=== PATIENT | female | born 1950 | race Caucasian/White ===

== ENCOUNTER 2017-09-26 06:50 | Day surgery (SDC) | payer MEDICARE, OTHER ==
[2017-09-24 15:07] VITALS: BMI 32.8
[2017-09-26 08:19] VITALS: BP 151/116; TEMP 97
[2017-09-26] MEDS ORDERED: Prevnar 13-Val Conj/PF 0.5 ML SYRINGE IM ONE (09:00)
--- NOTE | 2017-09-26 10:59 | RAD ---
CERVICAL AND LUMBAR SPINE MYELOGRAM: Date: 09/26/17 INDICATION: Cervical and lumbar radiculopathy. PROCEDURE: After informed consent had been obtained, the patient was escorted to the interventional suite and pl aced on the procedural table. [employer] imaging was performed. The patient was placed into a prone posi tion. Skin on the low back was then prepped and draped in the standard sterile fashion and topical a nd regional soft tissue anesthesia was achieved with 1% lidocaine and sodium bicarbonate. L2-3 right interlaminar approach was selected, and a 22 gauge needle was uneventfully advanced into the thecal s ac with clear color CSF. Subsequently, 13 mL Isovue-M300 was instilled into the thecal sac under joanna l time fluoroscopy. Appropriate opacification of thecal sac demonstrated with imaging stored for con firmation. The needle was then removed from the patient. The patient tolerated the procedure well a nd was then transferred to CT to undergo subsequent myelogram. Reference separate report for full de tails. Fluoroscopy Data: 0.4 minutes intermittent fluoroscopy, 149 mGy*cm^2. IMPRESSION: Technically successful cervical and lumbar myelogram as detailed above. POS: [facility]
--- NOTE | 2017-09-26 11:10 | CT ---
CT CERVICAL SPINE MYELOGRAM CT CERVICAL SPINE WITH CONTRAST: Date: 09/26/17 CLINICAL HISTORY: Cervical pain, weakness, stenosis. TECHNIQUE: CT scan of cervical spine performed. Status post myelogram procedure. Reference separate procedure re port for technical details of the procedure preceding the diagnostic imaging portion of the exam. FINDINGS: There is anterior metallic fusion of C6-7 levels. Posteriorly located cerclage wires traverse the C4 through C6 posterior elements. There is Grade I spondylolisthesis with associated focal kyphosis and partial intervertebral disc spa ce fusion of the C3-4 level. There is a slight degree of cortical discontinuity at the inferior and p osterior aspect of C3 vertebral segment. The fused C7 vertebral segment demonstrates moderate central ly located height loss and there is osseous proliferation emanating from the inferior aspect of the f used C6 vertebral body. There is degenerative hypertrophy at the atlantodental articulation. There is no significant central canal stenosis of C1-2 or C2-3. Centrally located osteophyte at C2-3 minimall y effaces the thecal sac. No significant C2-3 level foraminal stenosis. C3-4: There is a broad based osteophyte with mild central canal narrowing and ventral cord effacement. No h igh grade foraminal stenosis. C4-5: Right asymmetric disc osteophyte results in mild narrowing of the central canal. No high grade forami nal stenosis. C5-6: Broad based disc osteophyte is present with mild narrowing of central canal and mild ventral cord eff acement. Osseous hypertrophy at the uncinate process regions results in minimal narrowing of each jazmyne ral foramen. C6-7: Postoperative level reveals a broad based osteophyte asymmetric to the right with mild to moderate ce ntral canal narrowing and associated ventral cord effacement. There is moderate right and mild left f oraminal stenosis. C7-T1: There is broad based disc osteophyte and trace spondylolisthesis with mild to moderate central canal stenosis and ventral cord effacement. No high grade foraminal stenosis. IMPRESSION: 1. There is moderate multilevel degenerative change at the cervical spine as outlined above. 2. Postoperative changes are present. There is no evidence of significant perihardware lucency. POS: [facility]
--- NOTE | 2017-09-27 07:31 | CT ---
CT LUMBAR SPINE WITH CONTRAST: CT LUMBAR SPINE MYELOGRAM: CLINICAL HISTORY: Pain. Weakness. Stenosis. TECHNIQUE: Please reference the myelogram procedure report for technical details regarding the procedural compon ent performed prior to the diagnostic imaging portion of the exam. The exam is performed in conjunction with the cervical spine myelogram. FINDINGS: There is contrast opacification of the thecal sac contents, as well as a mild component of contrast w ithin the epidural space of the lumbar vertebral canal. Degenerative lucencies at the L4 and L5 vert ebral segments are present, indicative of Schmorl's nodes and degenerative cyst formation. There is prominent endplate sclerosis at these levels, as well as S1, compatible with a degenerative process. No acute compression fracture. There is grade 1-2 spondylolisthesis at L4-L5. Trace retrolisthesis at L5-S1 present. L5-S1: The thecal sac is patent. There is dependently layering contrast within the patent terminal thecal sac. A mild broad-based disk osteophyte is present without high grade central canal stenosis. Lateralized osteophyte formation, along with moderate bilateral facet hypertrophy, does result in m oderate osseous compromise of each neural foramen. L4-L5: As discussed above, there is spondylolisthesis, together with disk osteophyte complex that pr oduces moderate central canal stenosis. There is moderate bilateral neural foraminal stenosis and mo derate, degenerative bilateral facet hypertrophy, right greater than left. L3-L4: Disk osteophyte complex is present with moderate narrowing of the central canal. There is mo derate biforaminal stenosis as well. L2-L3: Disk osteophyte complex present with mild narrowing of the central canal. There is mild narr owing of each neural foramen with mild to moderate bilateral facet hypertrophy. L1-L2: There is no significant compromise of the central canal. No high grade foraminal stenosis. Incidental note of colonic diverticulosis and vascular disease. IMPRESSION: Multilevel degenerative change at the lumbar spine, as outlined above. Findings are most pronounced at the L2-L3 and L4-L5 levels. POS: [facility]
== END 2017-09-26 10:20 | disposition home or self-care (01) ==
LOC: RAD 06:50 → EDSTATUS 08:00 → RAD 10:20
PROVIDERS: ATTEND Physical Medicine & Rehabilitation
PROC: B02BY0Z Computerized Tomography (CT Scan) of Spinal Cord using Other Contrast, Unenhanced and Enhanced (ICD-10-PCS; principal; 2017-09-26)
DX: M48.03 Spinal stenosis, cervicothoracic region (principal); M43.13 Spondylolisthesis, cervicothoracic region; M48.061 Spinal stenosis, lumbar region without neurogenic claudication; M43.16 Spondylolisthesis, lumbar region; F32.9 Major depressive disorder, single episode, unspecified; E78.00 Pure hypercholesterolemia, unspecified; Z88.0 Allergy status to penicillin; Z88.5 Allergy status to narcotic agent; Z98.890 Other specified postprocedural states
CPT/HCPCS: 62305; 72126; 72132

== ENCOUNTER 2019-02-25 14:48 | Outpatient (CLI) | payer MEDICARE ==
--- NOTE | 2019-02-25 16:31 | MMO ---
Bilateral MAMMO Bilat Screen [facility]. CLINICAL HISTORY: Patient is 68 years old and is seen for screening. The patient has the following family history of breast cancer: maternal aunt, at age 58. The patient has no personal history of cancer. VIEWS: The views performed were: bilateral craniocaudal with tomosynthesis and bilateral mediolateral oblique with tomosynthesis. FILMS COMPARED: The present examination has been compared to prior imaging studies performed at [facility] on 01/09/2011, 08/12/2012, 10/30/2013 and 09/06/2015. This study has been interpreted with the assistance of computer-aided detection. MAMMOGRAM FINDINGS: There are scattered fibroglandular densities. There are no suspicious masses, suspicious calcifications, or new areas of architectural distortion. IMPRESSION: THERE IS NO MAMMOGRAPHIC EVIDENCE OF MALIGNANCY. A ROUTINE FOLLOW-UP MAMMOGRAM IN 1 YEAR IS RECOMMENDED. THE RESULTS OF THIS EXAM WERE SENT TO THE PATIENT. ACR BI-RADS Category 1 - Negative MAMMOGRAPHY NOTE: 1. A negative mammogram report should not delay a biopsy if a dominant of clinically suspicious mass is present. 2. Approximately 10% to 15% of breast cancers are not detected by mammography. 3. Adenosis and dense breasts may obscure an underlying neoplasm. Reported by: ESTEBAN BO MD Electonically Signed: [id number]
== END 2019-02-25 14:49 | disposition home or self-care (01) ==
LOC: BICMAMMO 14:48
PROVIDERS: ATTEND Family Medicine
DX: Z12.31 Encounter for screening mammogram for malignant neoplasm of breast (principal); Z80.3 Family history of malignant neoplasm of breast
CPT/HCPCS: 77063; 77067

== ENCOUNTER 2019-06-01 06:10 | Outpatient (CLI) | payer MEDICARE | END 2019-06-01 06:11 | disposition home or self-care (01) | LOC: LABBT 06:10 | PROVIDERS: ATTEND Neurological Surgery | DX: Z01.810 Encounter for preprocedural cardiovascular examination (principal); T84.498A Other mechanical complication of other internal orthopedic devices, implants and grafts, initial encounter | CPT/HCPCS: 93005; 93010 ==

== ENCOUNTER 2019-06-08 06:16 | Day surgery (SDC) | payer MEDICARE ==
[2019-06-01 10:00] VITALS: BMI 33.7
[2019-06-08] MEDS ORDERED: Levofloxacin 500 mg/D5W 100 ml Premix Bag ONE (07:50)
[2019-06-08] MEDS ORDERED: Clindamycin/D5W 900 mg/50 ml Premix Bag ONE (07:50)
--- NOTE | 2019-06-08 07:59 | HP ---
HISTORY OF PRESENT ILLNESS: Ms. Peres is a pleasant 69-year-old woman, here today for followup per Dr. Augustin on her cervical spine where she had three major operations. She actually has done very well since the last one in 2011. Over the last year, however, she started to develop severe neck pain particularly in the middle of the night and upon awaking. Imaging from 2017 at [facility] does show what could be a nonunion at C6-C7 and then we repeated the CT scan at [facility] that confirms. She does occasionally get pain in the C7 fashion to the left upper extremity and this could also play a factor. PHYSICAL EXAMINATION: GENERAL: She is alert and oriented x3. No limitation in cervical range of motion. Normal 5/5 strength in the bilateral upper extremities. PAST MEDICAL HISTORY: Significant for chronic pain syndrome, hypercholesterolemia, migraines, osteoarthritis, anxiety, and seasonal allergies. CURRENT MEDICATIONS: 1. Amitriptyline. 2. Crestor. ALLERGIES: CODEINE AND PENICILLIN. ASSESSMENT: Nonunion of cervical spine. PLAN: Dr. Reyes met with the patient, reviewed imaging, and advocated for re-operation of C6-C7 ACDF. He explained to the patient the risks, benefits, and alternatives to the procedure. The patient expressed understanding and elected to move forward with surgery as discussed. I do believe the patient is mentally competent and capable of making medical decisions for herself. We will move forward with surgery as planned. Job ID: [id number]
[2019-06-08] MEDS ORDERED: Fentanyl 100 MCG/2 ML VIAL ONE (09:01)
[2019-06-08] MEDS ORDERED: PHENYLEPHRINE-NS 100 MCG/ML 10 ML SYRINGE ONE (09:53)
[2019-06-08] MEDS ORDERED: PROPOFOL 200 MG/20 ML VIAL ONE (09:53)
[2019-06-08] MEDS ORDERED: Ondansetron PF 4 MG/2 ML Vial ONE (09:53)
[2019-06-08] MEDS ORDERED: Lidocaine 1% PF 5 ML VIAL ONE (09:53)
[2019-06-08] MEDS ORDERED: Rocuronium Bromide 10 MG/ML (10ML VIAL) ONE (09:53)
[2019-06-08] MEDS ORDERED: Dexamethasone 20 MG/5 ML VIAL ONE (09:53)
[2019-06-08] MEDS ORDERED: Glycopyrrolate 0.2 MG/ML 5 ML SYRINGE ONE (09:53)
--- NOTE | 2019-06-08 11:00 | OP ---
DATE OF PROCEDURE: 06/08/2019 COMPENSATION AGENT: Grant Mejia. INDICATION: Pain. DIAGNOSES: Failed fusion, C6-C7; nonunion. PROCEDURES: Reoperation; exploration of fusion; removal of hardware; and then anterior cervical diskectomy and fusion, C6-C7. ANESTHESIA: General. DESCRIPTION OF PROCEDURE: The patient was brought into the operating room and placed under general anesthesia. She was placed on table in a supine position. A transverse incision was planned over the lateral aspect of the neck on the right. After prepping and draping and after an appropriate operative pause, the incision was created. The underlying platysma muscle was identified and incised. A blunt tissue plane anterior to the sternocleidomastoid muscle was used to gain access to the prevertebral space. The patient's prior hardware construct was identified and was removed completely. We then identified the C6-C7 disk space where the nonunion was present. We removed additional disk material and drilled away ectopic bone placed from a prior operation. After decompressing the segment, decorticating the endplates, a 6-mm lordotic PEEK cage packed with allograft and autograft material was placed within the interbody space. An anterior cervical plate was then fashioned to the front of spine and secured with a total of 4 fixed screws. Midline lateral structures were inspected and found to be free from significant trauma. The wound was irrigated. Hemostasis was maintained throughout. The wound was then closed in anatomic layers and a pressure dressing was applied. There were no known procedural complications. Job ID: [id number]
[2019-06-08] MEDS ORDERED: HYDROcodone/Acetaminophen 5/325 mg Tablet ONE (12:30)
== END 2019-06-08 13:02 | disposition home or self-care (01) ==
LOC: SDC 06:16
PROVIDERS: ATTEND Neurological Surgery
PROC: 0RG10A0 Fusion of Cervical Vertebral Joint with Interbody Fusion Device, Anterior Approach, Anterior Column, Open Approach (ICD-10-PCS; principal; 2019-06-08)
PROC: 0RT30ZZ Resection of Cervical Vertebral Disc, Open Approach (ICD-10-PCS; 2019-06-08)
DX: M96.0 Pseudarthrosis after fusion or arthrodesis (principal); G89.4 Chronic pain syndrome; E78.00 Pure hypercholesterolemia, unspecified; M19.90 Unspecified osteoarthritis, unspecified site; F41.9 Anxiety disorder, unspecified; J30.2 Other seasonal allergic rhinitis; Z79.82 Long term (current) use of aspirin; Z79.899 Other long term (current) drug therapy; Z88.0 Allergy status to penicillin; Z88.5 Allergy status to narcotic agent; Z98.890 Other specified postprocedural states
CPT/HCPCS: 20930; 20936; 22551; 22853; 76000; C1713; C1776; J1100; J1956; J2001; J2405; J2704; J3010; J3490

== ENCOUNTER 2022-09-27 15:53 | Outpatient (CLI) | payer MEDICARE | END 2022-09-27 15:54 | disposition home or self-care (01) | LOC: SCSRAD 15:53 | PROVIDERS: ATTEND Family Medicine | DX: S99.921A Unspecified injury of right foot, initial encounter (principal) ==